=== PATIENT | female | born 1995 | race Caucasian/White ===

== ENCOUNTER 2019-08-24 18:41 | Emergency (ER) | payer SELFPAY ==
--- OUTSIDE RECORDS SUMMARY | 2019-08-24 19:45 | XMS REPORT | Continuity of Care Document ---
:1995 External Reference #:[id number] Author Name Areli Gee NP Address [address] [place] [address] Care Team Providers Name Role Phone No Care Team Information Pi/Senior Research Associate Unavailable Problems Description No Information Available Social History Type Date Description Comments Sex Female Tobacco Use Reviewed: 07/06/19 Never Smoked Cigars Tobacco Use Reviewed: 07/06/19 Never Smoked A Pipe Smoking Status Reviewed: 07/06/19 Never Smoked A Pipe Tobacco Use Reviewed: 07/06/19 Never Used Smokeless Tobacco ETOH Use Rarely consumes alcohol Recreational Drug Use Denies Drug Use Tobacco Use Start: Unknown End: Patient is a former smoker Unknown Recreational Drug Use Teaching provided regarding Naloxone/Narcan Training Available At [facility] Tattoo/Piercing Tattoo Tattoo/Piercing Pierced ears Tattoo/Piercing Pierced navel LANA: 07/02/2018 Estimated Date of Delivery Based on LMP Allergies, Adverse Reactions, Alerts Description No Known Drug Allergies Medications Active Medications SIG Qnty Indications Ordering Date Provider Apri 1 by mouth every day 84tabs Z30.011 Areli Gee, 07/06/2019 0.15-30mg-mcg VEGETABLE SPECKER Tablets Mirena (52 MG) one device Unknown intrauterine 20mcg/24HR IUD Medications Administered in Office Medication SIG Qnty Indications Ordering Provider Date Plan B One-Step take one tab 1tabs Z30.012 Areli Gee NP 07/06/2019 1.5mg today Tablets Contraceptive Pills Areli Gee NP 07/06/2019 Control Injection Emergency Contraceptive Areli Gee NP 07/06/2019 Injection Immunizations Description No Information Available Vital Signs Date Vital Result Comment 07/06/2019 11:51am BP Systolic 121 mmHg BP Diastolic 80 mmHg Weight 177.00 lb 11/04/2017 2:51pm BP Systolic 128 mmHg BP Diastolic 60 mmHg Height 68 inches 5'8" Weight 168.00 lb BMI (Body Mass Index) 25.5 kg/m2 Results Test Date Facility Test Result H/L Range Note Laboratory test 07/06/2019 [facility] Test neg finding Urine..... Procedures Date Code Description Status 07/06/2019 08533 Remove Intrauterine Device Completed Medical Devices Description No Information Available Encounters Description No Information Available Assessments Date Code Description Provider 07/06/2019 Z30.431 Encounter for routine checking of intrauterine Areli Gee NP contraceptive device 07/06/2019 Z30.012 Encounter for prescription of emergency Areli Gee NP contraception 07/06/2019 Z30.011 Encounter for initial prescription of Areli Gee NP contraceptive pills 07/06/2019 Z11.3 Encounter for screening for infections with a Areli Gee NP predominantly sexual mode of transmission 07/06/2019 R10.2 Pelvic and perineal pain Areli Gee NP 07/06/2019 N92.1 Excessive and frequent menstruation with Areli Gee NP irregular cycle 07/06/2019 Z32.02 Encounter for test, result negative Areli Gee NP Plan of Treatment Future Appointment(s):10/07/2019 11:00 am - [facility]GETABLE [facility]CKER at [facility]07/20/2019 8:30 am - RN Schedule at [facility]07/06/2019 - Areli Gee NPZ30.431 Encounter for routine checking of intrauterine contraceptive deviceComments:IUD was seen in cervical os. IUD removed. Patient tolerated well.Z30.012 Encounter for prescription of emergency contraceptionNew Medication:Plan B One-Step 1.5 mg - take one tab todayComments:UPIC 3 days ago. IUD removed today as it was in TRACY. Administered Plan B today in office. Reviewed use of, side effects and precautions with patient who states understanding. RTO in 2 weeks for UPT or take home UPT if menses does not occur as expected.Follow up:2 weeks UPT and 3 months method zoxxgZ60.011 Encounter for initial prescription of contraceptive pillsNew Medication:Apri 0.15-30 mg-mcg - 1 by mouth every dayComments:Start ocp. Reviewed use of, side effects and precautions with patient who states understanding. Instructed patient to use BUBC for first 7 days of pill and patient states understanding. Patient aware of ECP.Z11.3 Encounter for screening for infections with a predominantly sexual mode of transmissionComments:Reviewed STD risks and prevention with patient. Patient states understanding. Condoms given to patient.R10.2 Pelvic and perineal painComments:Likely secondary to IUD being in TRACY. If no improvement, will consider further w/u.N92.1 Excessive and frequent menstruation with irregular cycleComments:Likely secondary to IUD being in TRACY. If no improvement, will consider further w/u.Z32.02 Encounter for test, result negative Functional Status Description No Information Available Mental Status Description No Information Available Referrals Description No Information Available
[2019-08-24 20:20] VITALS: BP 134/76
[2019-08-24] MEDS ORDERED: Amoxicillin PO (*) 500 MG CAP PO ONE (20:54)
[2019-08-24] MEDS ORDERED: Ibuprofen TAB* 600 MG PO ONE (20:54)
--- NOTE | 2019-08-24 21:00 | UC ---
Dental HPI - HPI Summary HPI Summary: 24-year-old female who has had a lower right molar broken for several months. Last evening she started developing a toothache. She does not have a local dentist because she does not have insurance. - History of Current Complaint Chief Complaint: UCDentalProblem Stated Complaint: DENTAL CONCERN Time Seen by Provider: 08/24/19 20:49 Hx Obtained From: Patient Hx Last Menstrual Period: 08/01/19 ?: No Onset/Duration: Gradual Onset Severity: Mild Pain Intensity: 5 Aggravating Factor(s): Chewing Alleviating Factor(s): Nothing - Allergies/Home Medications Allergies/Adverse Reactions: Allergies Allergy/AdvReac Type Severity Reaction Status Date / Time No Known Allergies Allergy Verified 08/24/19 20:17 PMH/Surg Hx/FS Hx/Imm Hx Previously Healthy: Yes - Surgical History Surgical History: Yes Surgery Procedure, Year, and Place: - Family History Known Family History: Positive: Non-Contributory - Social History Alcohol Use: None Substance Use Type: None Smoking Status (MU): Never Smoked Tobacco Review of Systems All Other Systems Reviewed And Are Negative: Yes ENT: Positive: Dental Pain - Right lower distal molar is broken. Is Patient Immunocompromised?: No Physical Exam Triage Information Reviewed: Yes Appearance: Well-Appearing, No Pain Distress, Well-Nourished Vital Signs: Initial Vital Signs Temp 97.2 F 08/24/19 20:18 Pulse 75 08/24/19 20:18 Resp 16 08/24/19 20:18 BP 134/76 08/24/19 20:18 Pulse Ox 99 08/24/19 20:18 Vital Signs Reviewed: Yes ENT: Positive: Hearing grossly normal, Pharynx normal, TMs normal, Uvula midline Dental: Positive: Dental Fracture @ - Right lower distal molar is broken. Gumline is normal, no erythema or drainage. No evidence of abscess formation. Neck: Positive: Supple, Nontender, No Lymphadenopathy Respiratory: Positive: Lungs clear, Normal breath sounds, No respiratory distress, No accessory muscle use Cardiovascular: Positive: RRR, No Murmur, Pulses Normal, Brisk Capillary Refill Dental Complaint Course/Dx - Course Course Of Treatment: Patient is given 1 dose of amoxicillin 500 mg by mouth here and Motrin 600 mg and 2 prescriptions for the same to pickup tomorrow. She is to follow-up with the dentist for further care. - Differential Dx/Diagnosis Provider Diagnosis: Toothache Discharge ED - Sign-Out/Discharge Documenting (check all that apply): Patient Departure All imaging exams completed and their final reports reviewed: No Studies - Discharge Plan Condition: Good Disposition: HOME Prescriptions: Amoxicillin PO (*) [Amoxicillin 875 MG (*)] 875 mg PO BID 10 Days #20 tab Ibuprofen TAB* [Motrin TAB* 600 MG] 600 mg PO Q8H PRN #30 tab PRN Reason: Pain - Moderate Patient Education Materials: Toothache (ED) Referrals: No Primary Care Phys,NOPCP [Primary Care Provider] - [facility] [place] [facility] [place]Outside] Additional Instructions: May alternate Tylenol every 4 hours and Motrin every 8 hours as needed for pain. Definite follow-up with the dentist for further care. - Billing Disposition and Condition Condition: GOOD Disposition: Home
== END 2019-08-24 21:04 | disposition home or self-care (01) ==
LOC: UCCORT 18:41
DX: K08.89 Other specified disorders of teeth and supporting structures (principal); K03.81 Cracked tooth
CPT/HCPCS: 99212; A9270-GY; G0463

== ENCOUNTER 2020-01-03 11:40 | Emergency (ER) | payer MEDICAID, OTHER ==
[2020-01-03 12:53] VITALS: BP 136/86
--- NOTE | 2020-01-03 15:05 | UC ---
Dental HPI - HPI Summary HPI Summary: 24-year-old female presents with complaints of left lower dental pain. States this morning she was eating breakfast this morning and when she bit down had a sudden onset of pain to the left lower molar. States shortly afterward had some left-sided facial swelling. Took Excedrin with some improvement in the pain. States she has known dental decay with fracture to the second left lower molar. She currently does not have a dental appointment. Denies fever, chills , trismus, or drainage. - History of Current Complaint Chief Complaint: UCDentalProblem Stated Complaint: DENTAL COMPLAINT Time Seen by Provider: 01/03/20 14:15 Hx Obtained From: Patient Hx Last Menstrual Period: "probably like three weeks ago" Pain Intensity: 5 - Allergies/Home Medications Allergies/Adverse Reactions: Allergies Allergy/AdvReac Type Severity Reaction Status Date / Time No Known Allergies Allergy Verified 01/03/20 12:49 Home Medications: Home Medications [id number] (Nf) [Excedrin Extra Strength 250-250-65 mg (NF)] 2 tab PO ONCE 01/03/20 [History Confirmed 01/03/20] PMH/Surg Hx/FS Hx/Imm Hx Previously Healthy: Yes - Denies significant PMH - Surgical History Surgical History: Yes Surgery Procedure, Year, and Place: - Family History Known Family History: Positive: Non-Contributory - Social History Occupation: Employed Part-time Lives: Alone Alcohol Use: None Substance Use Type: None Smoking Status (MU): Never Smoked Tobacco Review of Systems All Other Systems Reviewed And Are Negative: Yes Constitutional: Negative: Fever, Chills ENT: Positive: Dental Pain - See HPI Respiratory: Positive: Negative Cardiovascular: Positive: Negative Gastrointestinal: Positive: Negative Genitourinary: Positive: Negative Musculoskeletal: Positive: Negative Neurological: Positive: Negative Is Patient Immunocompromised?: No Physical Exam - Summary Physical Exam Summary: GENERAL APPEARANCE: Well developed, well nourished, alert and cooperative, and appears to be in no acute distress. HEAD: Atraumatic. Normocephalic. No facial swelling. EYES: Conjunctiva clear. No drainage. EARS: External auditory canals and tympanic membranes clear, hearing grossly intact. NOSE: No nasal discharge. THROAT: Pharynx normal. No tonsilar inflammation, swelling, exudate, or lesions. Uvula midline. Severe decay with fracture of the left lower 2nd molar with mild gingival erythema. No induration, fluctuance, or drainage noted. No trismus. NECK: Neck supple, non-tender without lymphadenopathy. CARDIAC: Normal S1 and S2. No S3, S4 or murmurs. Rhythm is regular. There is no peripheral edema, cyanosis or pallor. Extremities are warm and well perfused. Capillary refill is less than 2 seconds. Peripheral pulses intact. LUNGS: Clear to auscultation without rales, rhonchi, wheezing or diminished breath sounds. ABDOMEN: Positive bowel sounds. Soft, nondistended, nontender. No guarding or rebound. No masses or hepatosplenomegally. MUSKULOSKELETAL: ROM intact to all extremities. No joint erythema or tenderness. Normal muscular development. Normal gait. SKIN: Skin normal color, texture and turgor with no lesions or eruptions. Triage Information Reviewed: Yes Vital Signs: Initial Vital Signs Temp 98.1 F 01/03/20 12:47 Pulse 64 01/03/20 12:47 Resp 16 01/03/20 12:47 BP 136/86 01/03/20 12:47 Pulse Ox 100 01/03/20 12:47 Vital Signs Reviewed: Yes Dental Complaint Course/Dx - Course Course Of Treatment: 24-year-old female presents with complaints of left lower dental pain. States this morning she was eating breakfast this morning and when she bit down had a sudden onset of pain to the left lower molar. States shortly afterward had some left-sided facial swelling. Took Excedrin with some improvement in the pain. States she has known dental decay with fracture to the second left lower molar. She currently does not have a dental appointment. Denies fever, chills , trismus, or drainage. Afebrile. Vital signs stable. Patient had Severe decay with fracture of the left lower 2nd molar with mild gingival erythema. No induration, fluctuance, or drainage noted. No trismus. No facial swelling. Remainder of exam was unremarkable. Start the patient on Augmentin 875 mg twice a day 10 days to treat for likely dental infection. She is to schedule an appointment with her dentist at the next available. Anticipatory guidance and warning symptoms are reviewed with the patient. Verbalizes understanding and agrees with plan of care. - Differential Dx/Diagnosis Differential Diagnosis/Dx: Dental Abscess, Dental Caries, Fractured Tooth, Gingivitis, Odontogenic Pain, Peridontic Disease Provider Diagnosis: Pain, dental Discharge ED - Sign-Out/Discharge Documenting (check all that apply): Patient Departure All imaging exams completed and their final reports reviewed: No Studies - Discharge Plan Condition: Stable Disposition: HOME Prescriptions: Amoxicillin/Clavulanate TAB* [Augmentin TAB 875*] 875 mg PO BID #20 tab Patient Education Materials: Toothache (ED) Referrals: No Primary Care Phys,NOPCP [Primary Care Provider] - Additional Instructions: Start Augmentin 875 mg twice a day 10 days. Take with food to avoid upset stomach. Be sure to complete the entire course even if feeling better. Take acetaminophen (Tylenol) or ibuprofen (Advil, Motrin) according to directions as needed for pain. Be sure to rinse your mouth out with a warm salt water solution after every time you eat to remove any debris. Make an appointment with your dentist at next available appointment. Seek immediate medical attention in the emergency room if you develop fever greater than 100.5 F, you are unable to open of close your mouth, are unable to swallow, have difficulty breathing, or any worsening of symptoms. - Billing Disposition and Condition Condition: STABLE Disposition: Home
== END 2020-01-03 15:17 | disposition home or self-care (01) ==
LOC: UCCORT 11:40
DX: K08.89 Other specified disorders of teeth and supporting structures (principal)
CPT/HCPCS: 99212; G0463

== ENCOUNTER 2020-02-09 15:22 | Emergency (ER) | payer OTHER ==
[2020-02-09 17:25] VITALS: BP 119/83
[2020-02-09] MEDS ORDERED: Ibuprofen TAB* 600 MG PO ONE (17:59)
--- NOTE | 2020-02-09 18:00 | UC ---
Throat Pain/Nasal Jono HPI - HPI Summary HPI Summary: 24-year-old woman comes in with chief complaint of 3 days of feeling ill. Started with a sore throat now she has rhinorrhea sinus pressure. She also has a headache. No real body aches. No complaint of shortness of breath.. She's had fevers when she took ibuprofen did help with her symptoms. Has had some mild back muscular soreness but no diffuse myalgias. - History of Current Complaint Chief Complaint: UCGeneralIllness Stated Complaint: SORE THROAT/NASAL CONGESTION Time Seen by Provider: 02/09/20 17:33 Hx Last Menstrual Period: 02/03/20 Pain Intensity: 0 - Allergies/Home Medications Allergies/Adverse Reactions: Allergies Allergy/AdvReac Type Severity Reaction Status Date / Time No Known Allergies Allergy Verified 02/09/20 17:25 Home Medications: Home Medications Amoxicillin PO (*) [Amoxicillin 875 MG (*)] 875 mg PO BID #20 tab 02/09/20 [Rx] PMH/Surg Hx/FS Hx/Imm Hx Previously Healthy: Yes - Surgical History Surgical History: Yes Surgery Procedure, Year, and Place: - Family History Known Family History: Positive: Non-Contributory - Social History Alcohol Use: Occasionally Substance Use Type: None Smoking Status (MU): Never Smoked Tobacco Review of Systems All Other Systems Reviewed And Are Negative: Yes Constitutional: Positive: Fever, Other - see hpi Skin: Positive: Negative Eyes: Positive: Negative ENT: Positive: Sore Throat, Nasal Discharge, Sinus Congestion, Sinus Pain/ Tenderness Respiratory: Positive: Cough Cardiovascular: Positive: Negative Gastrointestinal: Positive: Negative Motor: Positive: Negative Neurovascular: Positive: Negative Musculoskeletal: Positive: Myalgia Neurological/Mental Status: Positive: Headache Psychological: Positive: Negative Is Patient Immunocompromised?: No Physical Exam Triage Information Reviewed: Yes Appearance: No Pain Distress, Well-Nourished, Ill-Appearing - mild Vital Signs: Initial Vital Signs Temp 100.2 F 02/09/20 17:23 Pulse 96 02/09/20 17:23 Resp 16 02/09/20 17:23 BP 119/83 02/09/20 17:23 Pulse Ox 100 02/09/20 17:23 Vital Signs Reviewed: Yes Eye Exam: Normal Eyes: Positive: Conjunctiva Clear ENT: Positive: Pharyngeal erythema, Nasal congestion, Nasal drainage, TMs normal Neck: Positive: Supple Respiratory: Positive: Lungs clear, Normal breath sounds, No respiratory distress Cardiovascular: Positive: RRR Musculoskeletal: Positive: Strength Intact, ROM Intact Neurological: Positive: Alert, Muscle Tone Normal Psychological: Positive: Normal Response To Family, Age Appropriate Behavior Skin Exam: Normal Throat Pain/Nasal Course/Dx - Course Course Of Treatment: DISCUSSED VIRAL VERSES BACTERIAL INFECTIONS AND THE ROLE OF ANTIBIOTICS. THE PATIENT PREFERS TO BE ON ANTIBIOTICS AT THIS TIME. - Differential Dx/Diagnosis Provider Diagnosis: Pharyngitis, Upper respiratory infection Discharge ED - Sign-Out/Discharge Documenting (check all that apply): Patient Departure All imaging exams completed and their final reports reviewed: No Studies - Discharge Plan Condition: Stable Disposition: HOME Prescriptions: Amoxicillin PO (*) [Amoxicillin 875 MG (*)] 875 mg PO BID #20 tab Patient Education Materials: Pharyngitis (ED), Upper Respiratory Infection (ED) Forms: *Work Release Referrals: [facility] [place] [facility] [Outside] Additional Instructions: FOLLOW UP WITH YOUR DOCTOR IF NOT COMPLETELY IMPROVED. GET REEVALUATED SOONER IF NOT IMPROVED OR WORSE OR ANY QUESTIONS OR CONCERNS. - Billing Disposition and Condition Condition: STABLE Disposition: Home
== END 2020-02-09 18:07 | disposition home or self-care (01) ==
LOC: UCCORT 15:22
DX: J02.9 Acute pharyngitis, unspecified (principal); B34.9 Viral infection, unspecified
CPT/HCPCS: 87651; 99212; A9270-GY; G0463